=== PATIENT | male | born 2005 | race Caucasian/White ===

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

== ENCOUNTER 2023-09-29 01:15 | Emergency (ER) | payer MEDICAID, SELFPAY ==
[2023-09-29 01:36] VITALS: BP 109/72; PULSE 102; RESP 16; TEMP 36.9; O2SAT 98; BMI 22.7
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
[2023-09-29] MEDS: Lidocaine HCl 1 % MPF 2 ML VIAL INFILTRATI (04:11)
[2023-09-29] MEDS: Ibuprofen 600 MG TABLET PO (04:11)
[2023-09-29 04:17] VITALS: BP 109/72; PULSE 102; RESP 16; TEMP 36.9; O2SAT 98
== END 2023-09-29 04:15 | disposition home or self-care (01) ==
PROVIDERS: Emergency Provider Internal Medicine
DX: S01.511A Laceration without foreign body of lip, initial encounter (principal); Y04.8XXA Assault by other bodily force, initial encounter; Y93.89 Activity, other specified; Y92.9 Unspecified place or not applicable; Y99.9 Unspecified external cause status
CPT/HCPCS: 12011; 99283; 99284

== ENCOUNTER 2023-12-08 12:10 | Outpatient (REF) | payer OTHER, SELFPAY ==
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
== END 2023-12-08 12:11 | disposition home or self-care (01) ==
LOC: HO.HHCX 12:10
PROVIDERS: Visit Provider Student in an Organized Health Care Education/Training Program
DX: M54.16 Radiculopathy, lumbar region (principal)
CPT/HCPCS: 72110

== ENCOUNTER 2024-03-11 20:33 | Emergency (ER) | payer MEDICAID, SELFPAY ==
[2024-03-11 20:47] VITALS: BP 129/91; PULSE 105; RESP 18; TEMP 36.9; O2SAT 98
--- NOTE | 2024-03-11 20:49 | ED_ITS ---
HPI - General Adult General Chief complaint: Allergic Reaction Stated complaint: eye pain Time Seen by Provider: 03/11/24 22:46 Source: patient Limitations: no limitations History of Present Illness ED Provider: Mansi ceballos PA-C HPI narrative: 18-year-old male presents with multiple complaints. Patient was eating a burger when he started developing right eye tearing and right-sided facial swelling with a runny nose, prior to arrival. Denies swelling of lips, tongue, dysphagia, dyspnea or stridor. Patient also complains of right lower tooth pain for weeks. Patient had an appointment today for a dental extraction, he missed the appointment. He was told by the facility that they would no longer be taking care of him. Patient completed a course of antibiotics 3 weeks ago, his pain is returning. Denies fever. Related Data Previous Rx's ?Medication ?Instructions ?Recorded diphenhydramine HCl 25 mg capsule 50 mg (2 x 25 mg) PO TID PRN 09/08/22 (Benadryl) allergic reaction #30 caps acetaminophen 325 mg tablet 650 mg (2 x 325 mg) PO Q6H PRN 10/07/22 (Tylenol) pain #30 tabs amoxicillin 875 mg-potassium 1 tab PO BID 14 days #28 tabs 10/07/22 clavulanate 125 mg tablet ibuprofen 600 mg tablet 600 mg PO Q8H PRN pain #30 tabs 10/07/22 ibuprofen 600 mg tablet 600 mg PO Q6H PRN fever or pain 09/29/23 #30 tabs penicillin V potassium 500 mg 500 mg PO QID #40 tabs 03/11/24 tablet Allergies Allergy/AdvReac Type Severity Reaction Status Date / Time bee pollen [bee stings] Allergy Anaphylaxis Verified 09/29/23 01:39 Peanut Butter Allergy Anaphylaxis Verified 03/11/24 20:50 Review of Systems Review of Systems: Yes all other systems are reviewed and are negative Constitutional: Constitutional: Denies fatigue and Denies fever(s) Eyes: Eyes: Denies change in vision, Denies eye discharge, Denies irritation and Denies itchy eyes ENT: Reports mouth pain, Reports nasal congestion, Reports nasal discharge, Denies sore throat, Denies throat swelling and Denies tongue swelling Cardiovascular: Cardiovascular: Denies chest pain and Denies dyspnea Respiratory: Respiratory: Denies dyspnea, Denies stridor and Denies wheezing Endocrine: Endocrine: Denies fatigue Allergic/Immunologic: Allergic/Immunologic: Denies itchy eyes, Denies throat swelling, Denies tongue swelling and Denies wheezing PMFSH Past Medical History Attestation statement: The following information was validated with the patient. Medical History Hx of migraine headaches ADD (attention deficit disorder) Social History Social History Smoked in Last 30 Days: No Use of substances other than those prescribed or required for medical reasons: Yes Substance Use Type: Marijuana Advance Directives: No Advance Directives Information Provided: No Do you have a plan to hurt others: No Plan Current occupational status: disabled Current occupation: rt hand Physical Exam ED Vital Signs: Vital Signs - 24 hr 03/11/24 20:47 03/12/24 00:07 Temperature 98.5 F 98.5 F Pulse Rate 105 H 105 H Respiratory Rate 18 18 Blood Pressure 129/91 H 129/91 H Pulse Oximetry 98 98 Oxygen Delivery Method Room Air Room Air BMI result Body Mass Index 20.0 Const Other: Alert, well-appearing Orientation/consciousness: patient oriented x3 HENMT Other: No angioedema of the lips or tongue, no focal facial swelling on the right that is appreciated at this time. Tooth number 30 is absent, only a fragment remains within the gingiva, there is erythema noted along the gum tooth margin, no active purulent drainage at this time, no sublingual fluctuance noted, no trismus no drooling Eyes Other: No injection of the right bulbar conjunctiva, no discharge noted, no periorbital swelling Neck Other: No swelling inferior to the jawline Resp Other: Nonlabored respiration Cardio Other: Normal peripheral perfusion Skin Other: Warm dry no rash Neuro General: patient oriented x3, no focal motor deficits and CN's II-XI intact bilaterally Psych Other: Hostile belligerent Course Course Course Narrative: This is an RME done by AIYANA Thomas: Additional HPI, ROS, PE not included below will be deferred to primary provider. 18-year-old male presents with swollen right eye, he reports he was eating a hamburger about 20-30 minutes ago started having runny nose, facial swelling ever since then. Denies any difficulty breathing, nausea, vomiting, abdominal pain, diarrhea. Did not take anything for this yet. Plan will order Benadryl and decadron from triage Medications Administered Discontinued Medications Generic Name Dose Route Start Last Admin Trade Name Dayana PRN Reason Stop Dose Admin Dexamethasone Sodium Phosphate 10 mg 03/11/24 20:50 03/11/24 20:59 Dexamethasone Sod Phosphate 10 Mg/Ml Vial IVPUSH 03/11/24 20:51 10 mg ONCE ONE Administration Diphenhydramine HCl 50 mg 03/11/24 20:49 03/11/24 20:59 Diphenhydramine Hcl 25 Mg Capsule PO 03/11/24 20:50 50 mg ONCE ONE Administration Loratadine 10 mg 03/11/24 23:49 03/12/24 00:07 Loratadine 10 Mg Tablet PO 03/11/24 23:50 10 mg ONCE ONE Administration Penicillin V Potassium 500 mg 03/11/24 23:38 03/12/24 00:07 Penicillin V Potassium 250 Mg Tablet PO 03/11/24 23:39 500 mg ONCE ONE Administration Medical Decision Making Medical Decision Making MDM Narrative: 18-year-old male presents with multiple complaints. Patient was eating a burger when he started developing right eye tearing and right-sided facial swelling with a runny nose, prior to arrival. Denies swelling of lips, tongue, dysphagia, dyspnea or stridor. Patient also complains of right lower tooth pain for weeks. Patient had an appointment today for a dental extraction, he missed the appointment. He was told by the facility that they would no longer be taking care of him. Patient completed a course of antibiotics 3 weeks ago, his pain is returning. Denies fever. Problem: Dental infection History: Per patient I have considered the following differential diagnoses: Dental abscess, Fabian angina, anaphylaxis, allergic reaction, angioedema Plan: Unclear if the tearing of the eye in the facial swelling with rhinorrhea was secondary to an allergic reaction versus from his underlying dental infection. Placing the patient back on antibiotics, and I have advised that he needs to follow up with a dentist. To note there was no evidence of Fabian angina on exam. The patient has been here for several hours, he has had an appropriate observation., he has not had progression of his suspect allergic reaction. We will send with the home care instructions. He can follow up with his primary care provider. Lab Data Labs: Lab Results 03/11/24 Range/Units 21:14 Influenza Type A (PCR) NEGATIVE (Negative) Influenza Type B (PCR) NEGATIVE (Negative) RSV RNA Qual (PCR) NEGATIVE (Negative) SARS-CoV-2 RNA (RT-PCR) NEGATIVE (Negative) Discharge Plan Discharge Clinical Impression: Abscess, dental, Allergic reaction Patient Disposition: Home, Self-Care Instructions: Dental Abscess (ED), General Allergic Reaction (ED) Additional Instructions: You were treated for an allergic reaction from an unknown allergen. See home care instructions. You can continue to use [id number] Zyrtec daily, for your residual runny nose and nasal congestion. In regard to your dental infection, take the penicillin as directed. I am sending a prescription to your pharmacy, you received an initial dose here in the emergency department. You need to follow up with a dentist for extraction, otherwise, the infection we will never resolve it will only worsen. You can start looking for other dental clinic sitter in the community by searching [employer], if your own dentist will not accept you any longer. Prescriptions: New penicillin V potassium 500 mg tablet 500 mg PO QID Qty: 40 0RF No Action diphenhydramine HCl [Benadryl] 25 mg capsule 50 mg PO TID PRN (Reason: allergic reaction) Qty: 30 0RF amoxicillin-pot clavulanate 875-125 mg tablet 1 tab PO BID 14 Days Qty: 28 0RF ibuprofen 600 mg tablet 600 mg PO Q8H PRN (Reason: pain) Qty: 30 0RF acetaminophen [Tylenol] 325 mg tablet 650 mg PO Q6H PRN (Reason: pain) Qty: 30 0RF ibuprofen 600 mg tablet 600 mg PO Q6H PRN (Reason: fever or pain) Qty: 30 0RF Interventions: ED Discharge Assessment Last Done: 03/12/24 00:07 Discharge Date/Time: 03/12/24 00:08 Print Language: Mohawk
[2024-03-11] MEDS: dexAMETHasone sod phosphate 10 MG/ML VIAL IVPUSH (20:59)
[2024-03-11] MEDS: diphenhydrAMINE HCL 25 MG CAPSULE 50 MG PO (20:59)
[2024-03-11 21:59] LABS: Influenza A PCR NEGATIVE (Negative); Influenza B PCR NEGATIVE (Negative); Resp Syncy Virus RNA Qual PCR NEGATIVE (Negative); SARS COV2 PCR INHOUSE NEGATIVE (Negative)
[2024-03-12 00:07] VITALS: BP 129/91; PULSE 105; RESP 18; TEMP 36.9; O2SAT 98
[2024-03-12] MEDS: Penicillin V Potassium 250 MG TABLET 500 MG PO (00:07)
[2024-03-12] MEDS: Loratadine 10 MG TABLET PO (00:07)
== END 2024-03-12 00:08 | disposition home or self-care (01) ==
PROVIDERS: Emergency Provider Emergency Medicine
DX: K04.7 Periapical abscess without sinus (principal); L27.2 Dermatitis due to ingested food; Z03.818 Encounter for observation for suspected exposure to other biological agents ruled out
CPT/HCPCS: 0241U; 96374; 99284; J1100

== ENCOUNTER 2024-10-17 09:14 | Outpatient (REF) | payer MEDICAID, SELFPAY ==
--- NOTE | ~2024-10-17 | XR_ITS ---
EXAMINATION: XR HAND, RIGHT XR WRIST, RIGHT CLINICAL INFORMATION: R hand/wrist pain and swelling s/p trauma, r/o fracture COMPARISON: None available. TECHNIQUE: PA, lateral, and oblique views of the right hand. FINDINGS: The bones and soft tissues are normal. No fracture. Alignment is anatomic. Joint spaces are maintained. No erosions or soft tissue calcifications. XR/XR wrist RT min 3V IMPRESSION: Normal right hand and wrist. Electronically signed by: Jostin Miller MD 10/17/2024 10:08 AM EDT
--- NOTE | ~2024-10-17 | XR_ITS ---
EXAMINATION: XR HAND, RIGHT XR WRIST, RIGHT CLINICAL INFORMATION: R hand/wrist pain and swelling s/p trauma, r/o fracture COMPARISON: None available. TECHNIQUE: PA, lateral, and oblique views of the right hand. FINDINGS: The bones and soft tissues are normal. No fracture. Alignment is anatomic. Joint spaces are maintained. No erosions or soft tissue calcifications. XR/XR hand RT min 3V IMPRESSION: Normal right hand and wrist. Electronically signed by: Jostin Miller MD 10/17/2024 10:08 AM EDT
--- OUTSIDE RECORDS SUMMARY | 2024-10-17 09:44 | XMS_ITS | Referral Summary ---
Author Organization [facility] Address [address] [place] [address] Care Team Providers Care Organic Extractions Technician Name Role Phone Andra Macedo Primary Care Provider [phone] Allergies Active Allergy Reactions Criticality Noted Date Comments Bee Venom Protein (Honey Bee) Anaphylaxis High 07/05 Social History Tobacco Use Types Packs/Day Years Used Date Smoking Tobacco: Never Smokeless Tobacco: Never Alcohol Use Standard Drinks/Week Comments Never 0 (1 standard drink = 0.6 oz pur e alcohol) Sex and Gender Information Value Date Recorded Sex Assigned at Not on file Legal Sex Male 8:42 PM EDT Gender Identity Not on file Sexual Orientation Not on file Last Filed Vital Signs Vital Sign Reading Time Taken Comments Blood Pressure 109/65 07/05/2020 8:16 PM EDT Pulse 98 07/05/2020 8:16 PM EDT Temperature 36.9 C (98.4 F) 07/05/2020 8:16 PM EDT Respiratory Rate 20 07/05/2020 8:16 PM EDT Oxygen Saturation 99% 07/05/2020 8:16 PM EDT Inhaled Oxygen Concentration - - Weight 55.7 kg (122 lb 12.7 oz) 021 10:13 PM EDT Height - - Body Mass Index - - Plan of Treatment Not on file Insurance [facility] Care Teams Organic Extractions Technician Relationship Specialty Start Date End Date Andra Macedo [address] [place] [id number] PCP - General Pediatrics 07/03/20
== END 2024-10-17 09:15 | disposition home or self-care (01) ==
LOC: HO.HHCX 09:14
PROVIDERS: Visit Provider Family Medicine
DX: M79.641 Pain in right hand (principal); M79.89 Other specified soft tissue disorders; M25.531 Pain in right wrist
CPT/HCPCS: 73110; 73130

== ENCOUNTER → 2024-10-17 09:14 | Outpatient (BNV) | payer MEDICAID, SELFPAY | PROVIDERS: Visit Provider Radiology Diagnostic Radiology | DX: M79.641 Pain in right hand (principal); M25.531 Pain in right wrist; R22.31 Localized swelling, mass and lump, right upper limb | CPT/HCPCS: 73110; 73130 ==

== ENCOUNTER 2024-10-17 09:51 | Emergency (ER) | payer MEDICAID, SELFPAY ==
[2024-10-17 09:56] VITALS: BP 119/77; PULSE 84; RESP 16; TEMP 36.3; O2SAT 100; BMI 24.7
--- NOTE | 2024-10-17 10:13 | ED_ITS ---
HPI - Extremity Problem General Chief complaint: Extremity Injury, Upper Stated complaint: r hand inj Time Seen by Provider: 10/17/24 10:13 Source: patient Mode of arrival: ambulatory Limitations: no limitations History of Present Illness ED Provider: HPI Narrative: 19-year-old presenting with right hand pain, was sent to the ER from x-rays, he punched a window and fell on his hand as well, and complaining of pain over the 5th metacarpal on the dorsal aspect of his hand. No bleeding no skin lacerations no other trauma reported. Related Data Previous Rx's ?Medication ?Instructions ?Recorded diphenhydramine HCl 25 mg capsule 50 mg (2 x 25 mg) PO TID PRN 09/08/22 (Benadryl) allergic reaction #30 caps acetaminophen 325 mg tablet 650 mg (2 x 325 mg) PO Q6H PRN 10/07/22 (Tylenol) pain #30 tabs amoxicillin 875 mg-potassium 1 tab PO BID 14 days #28 tabs 10/07/22 clavulanate 125 mg tablet ibuprofen 600 mg tablet 600 mg PO Q8H PRN pain #30 t abs 10/07/22 ibuprofen 600 mg tablet 600 mg PO Q6H PRN fever or p ain 09/29/23 #30 tabs penicillin V potassium 500 mg 500 mg PO QID #40 tabs 1 05/12/23 tablet Allergies Allergy/AdvReac Type Severity Reaction Status Date / Time bee pollen (bee stings) Allergy Anaphylaxis Verified 10/17/24 09:58 Peanut Butter Allergy Anaphylaxis Verified 10/17/24 09:58 Review of Systems Constitutional: Constitutional: Reports as per [facility] Past Medical History Medical History Hx of migraine headaches ADD (attention deficit disorder) Social History Social History Substance Use Type: Marijuana Advance Directives: No Advance Directives Information Provided: Yes Do you have a plan to hurt others: No Plan Current occupational status: disabled Current occupation: rt hand Physical Exam Vital Signs: Vital Signs: Last Vital Signs Temp 97.4 F 10/17/24 09:56 Pulse 84 10/17/24 09:56 Resp 16 10/17/24 09:56 BP 119/77 10/17/24 09:56 Pulse Ox 100 10/17/24 09:56 O2 Del Method Room Air 10/17/24 09:56 BMI result Body Mass Index 24.7 Const: Other: Examination of the hand reveals unremarkable wrist no deformity radial ulnar pulses +2, he is able to spread his fingers, give me a thumbs up squeeze my hand, he is tender over the dorsum of his hand without deformity without lacerations, general sensory intact as well He is otherwise alert and oriented x4 Medical Decision Making Medical Decision Making [facility] Narrative: Presented with right hand contusion, x-rays without obvious fractures, ice anti- inflammatories, no neurovascular deficits, no fractures no dislocations Differential Diagnosis Differential Diagnoses: The differential diagnosis associated with the presentation includes (See above) Independent Interpretation I performed an independent interpretation of an: Plain X-Ray (No fractures noted in the hand or wrist) Radiology Impression Discussion of test interpretation with radiology: I have reviewed the radiologist's reading. Discharge Plan Discharge Clinical Impression: Contusion of hand, right Qualifiers: Encounter type: initial encounter Qualified Code(s): S60.221A - Contusion of right hand, initial encounter Patient Disposition: Home, Self-Care Additional Instructions: Ice the area with a bag of ice every day for 20 minutes to 3 times a day, you can take ibuprofen or Tylenol as needed for pain all these are [id number] fall instructions on the bottle, you can take ibuprofen 400 mg every 6 hours around the clock for the next 2 days, and I acetaminophen 975 mg every 6 hours for additional pain control as needed X-rays without any fractures, do not punched any hard surfaces otherwise you will break your hand Prescriptions: No Action diphenhydramine HCl [Benadryl] 25 mg capsule 50 mg PO TID PRN (Reason: allergic reaction) Qty: 30 0RF amoxicillin-pot clavulanate 875-125 mg tablet 1 tab PO BID 14 Days Qty: 28 0RF ibuprofen 600 mg tablet 600 mg PO Q8H PRN (Reason: pain) Qty: 30 0RF acetaminophen [Tylenol] 325 mg tablet 650 mg PO Q6H PRN (Reason: pain) Qty: 30 0RF penicillin V potassium 500 mg tablet 500 mg PO QID Qty: 40 0RF ibuprofen 600 mg tablet 600 mg PO Q6H PRN (Reason: fever or pain) Qty: 30 0RF Print Language: Bulgarian
[2024-10-17 10:38] VITALS: BP 119/77; PULSE 84; RESP 16; TEMP 36.3; O2SAT 100
== END 2024-10-17 10:39 | disposition home or self-care (01) ==
PROVIDERS: Emergency Provider Emergency Medicine; PCP Family Medicine
DX: S60.221A Contusion of right hand, initial encounter (principal); W18.39XA Other fall on same level, initial encounter; Y93.89 Activity, other specified; Y92.89 Other specified places as the place of occurrence of the external cause; Y99.8 Other external cause status
CPT/HCPCS: 99283